=== PATIENT | male | born 1985 | race Caucasian/White ===

== ENCOUNTER → 2020-12-27 | Outpatient (CLI) | payer BC | LOC: LAB 10:03 | DX: Z51.81 Encounter for therapeutic drug level monitoring (principal); Z79.899 Other long term (current) drug therapy | CPT/HCPCS: 36415; 80076 ==

== ENCOUNTER → 2021-02-17 | Outpatient (CLI) | payer BC | LOC: LAB 10:29 | DX: Z51.81 Encounter for therapeutic drug level monitoring (principal); Z79.899 Other long term (current) drug therapy | CPT/HCPCS: 36415; 80076 ==

== ENCOUNTER → 2021-05-05 | Outpatient (CLI) | payer BC | LOC: LAB 09:40 | DX: Z51.81 Encounter for therapeutic drug level monitoring (principal); Z79.899 Other long term (current) drug therapy | CPT/HCPCS: 36415; 80076 ==

== ENCOUNTER → 2021-09-22 | Outpatient (CLI) | payer BC | LOC: KOH-I 16:09 | DX: M79.645 Pain in left finger(s) (principal) | CPT/HCPCS: 73120 ==